=== PATIENT | female | born 1985 | race Caucasian/White ===

== ENCOUNTER 2018-04-15 07:28 | Emergency (ER) | payer OTHER ==
[2018-04-15] MEDS ORDERED: Lidocaine 1%* 5 ML VIAL ONE (07:50)
[2018-04-15 07:53] VITALS: BP 137/92
[2018-04-15] MEDS ORDERED: Lidocaine 1%* 5 ML VIAL INJ ONE (08:03)
--- NOTE | 2018-04-15 11:57 | UC ---
Liliana Turner Rebecca, scribed for Jun Tilley MD on 04/15/18 at 0752 . Laceration HPI - HPI Summary HPI Summary: Pt is a 33 y/o F who presents to [facility] c/o right index finger laceration. Pt reports that last night at about 1700 she was using a knife to get the top off a bottle when the knife slipped and caused the laceration. She immediately washed the laceration and applied pressure for about 30 minutes. Reports it appeared as though the bleeding had decreased in severity, so she bandaged it and went to sleep. This morning the bleeding had begun again. Left hand dominant and takes 81 mg ASA daily as part of her IVF cycle. No PMHx or FHx bleeding disorders. Tetanus is UTD. - History Of Current Complaint Stated Complaint: FINGER LAC Time Seen by Provider: 04/15/18 07:34 Hx Obtained From: Patient Hx Last Menstrual Period: 12/29/2013 Laceration Location: Finger - Right index Mechanism Of Injury: Sharp Trauma - Knife Onset/Duration: Lasting Hours - Last night at 1700, Still Present Severity: Moderate Pain Intensity: 4 Pain Scale Used: 0-10 Numeric Aggravating Factors: Nothing Related History: Dominant Hand Left - Allergies/Home Medications Allergies/Adverse Reactions: Allergies Allergy/AdvReac Type Severity Reaction Status Date / Time No Known Allergies Allergy Verified 04/15/18 07:46 Home Medications: Home Medications Aspirin EC TAB* [Ecotrin EC Low Dose 81 MG*] 81 mg PO DAILY 04/15/18 [History Confirmed 04/15/18] Leuprolide Acetate [Lupron Depot (Lupaneta)] 5 mg IM DAILY 04/15/18 [History Confirmed 04/15/18] Levothyroxine TAB* [Synthroid TAB*] 25 mcg PO 0800 04/15/18 [History Confirmed 04/15/18] PMH/Surg Hx/FS Hx/Imm Hx - Additional Past Medical History Additional PMH: NEGATIVE PMHx: Bleeding disorder, Asthma, HTN, COPD Endocrine History: Thyroid Disease - Hypothyroid - Surgical History Surgical History: Yes Surgery Procedure, Year, and Place: [place] teeth extractioin 2001 - Family History Known Family History: Negative: Blood Disorder - Social History Alcohol Use: None Substance Use Type: None Smoking Status (MU): Never Smoked Tobacco Have You Smoked in the Last Year: No - Immunization History Most Recent Influenza Vaccination: Most Recent Tetanus Shot: 11/23/14 Most Recent Pneumonia Vaccination: n/a Review of Systems Constitutional: Negative Skin: Other - Right index finger laceration Eyes: Negative ENT: Negative Respiratory: Negative Cardiovascular: Negative Gastrointestinal: Negative Genitourinary: Negative Motor: Negative Neurovascular: Negative Musculoskeletal: Negative Neurological: Negative Psychological: Negative All Other Systems Reviewed And Are Negative: Yes Physical Exam - Summary Physical Exam Summary: Appearance: Well appearing, no pain distress Skin: warm, dry, reflects adequate perfusion, 1.5 cm laceration proximal to the PIP joint on her right index finger with normal tendon function and normal sensation Head/face: normal Eyes: EOMI, TAIWO ENT: normal Neck: supple, non-tender Respiratory: CTA, breath sounds present Cardiovascular: RRR, pulses symmetrical Musculoskeletal: normal, strength/ROM intact Neuro: normal, sensory motor intact, A&Ox3 Triage Information Reviewed: Yes Vital Signs: Initial Vitals Temp Pulse Resp BP Pulse Ox 99.3 F 114 16 137/92 98 04/15/18 07:36 04/15/18 07:36 04/15/18 07:36 04/15/18 07:36 04/15/18 07:36 Vital Signs Reviewed: Yes Laceration Repair - Laceration Repair 1 Laceration Size After Repair: Length (cm) - 1.5 Contamination/FB Removal: Cleaned in the sink Anesthesia Used: 1.0% Lido - 0.5 cc Closure Material: Sutures Closure Method: Single Layer Suture Of: Skin Suture Type: Prolene - 4-0; 1x simple interrupted, 1x horizontal mattress Laceration Course/Dx - Course/Dx Course Of Treatment: Patient with a finger laceration that continues to bleed. She irrigated it last night when it occurred and we cleaned it again today. 2 sutures closed the wound. Topical bacitracin. - Differential Dx - Laceration/Wound Provider Diagnoses: Finger laceration Discharge - Sign-Out/Discharge Documenting (check all that apply): Discharge/Admit/Transfer - Discharge - Discharge Plan Condition: Improved Disposition: HOME Patient Education Materials: Finger Laceration (ED) Referrals: Lucila Peacock MD [Primary Care Provider] - Additional Instructions: Sutures out in 7-10 days. Keep dressed with bacitracin and a Band-Aid. Return with concerns for infection, worse, new symptoms or other concerns. - Billing Disposition and Condition Condition: IMPROVED Disposition: Home The documentation as recorded by the Liliana faria Rebecca accurately reflects the service I personally performed and the decisions made by me, Jun Tilley MD.
== END 2018-04-15 08:09 | disposition home or self-care (01) ==
LOC: UCEAST 07:28
DX: S61.210A Laceration without foreign body of right index finger without damage to nail, initial encounter (principal); W26.0XXA Contact with knife, initial encounter; Y93.9 Activity, unspecified; Y92.9 Unspecified place or not applicable; Z79.82 Long term (current) use of aspirin; E03.9 Hypothyroidism, unspecified
CPT/HCPCS: 12001; 99211; G0463

== ENCOUNTER 2018-04-23 08:14 | Emergency (ER) | payer OTHER ==
[2018-04-23 08:25] VITALS: BP 124/72
--- NOTE | 2018-04-23 08:30 | UC ---
HPI Wound/Suture Re-check - HPI Summary HPI Summary: This pt is a 33 y/o female presenting to [facility] for suture removal today. Pt reports she sustained a right index finger laceration on 04/15/18. She came to the Urgent Care on 04/15 and had a laceration repair. Since then pt denies any issues or complications. Denies swelling, redness, fever, chills, drainage. - History Of Current Complaint Chief Complaint: UCWounds Stated Complaint: SUTURE REMOVAL Time Seen by Provider: 04/23/18 08:23 Hx Obtained From: Patient Hx Last Menstrual Period: 04/13/18 Onset/Duration: Lasting Days, Still Present Surgical Site: Right index finger Pain Intensity: 0 Pain Scale Used: 0-10 Numeric Procedure Type: Sutures placed on 04/15/18 - Allergies/Home Medications Allergies/Adverse Reactions: Allergies Allergy/AdvReac Type Severity Reaction Status Date / Time No Known Allergies Allergy Verified 04/23/18 08:25 Home Medications: Home Medications Estradiol [Estrace] 1 mg PO Q2HR 04/23/18 [History Confirmed 04/23/18] PMH/Surg Hx/FS Hx/Imm Hx Other Endocrine History: DENIES: diabetes Other Cardiovascular History: DENIES: HTN - Surgical History Surgical History: Yes Surgery Procedure, Year, and Place: [place] teeth extractioin 2001 - Family History Known Family History: Negative: Blood Disorder - Social History Alcohol Use: None Substance Use Type: None Smoking Status (MU): Never Smoked Tobacco Have You Smoked in the Last Year: No - Immunization History Most Recent Influenza Vaccination: Most Recent Tetanus Shot: 11/23/14 Most Recent Pneumonia Vaccination: n/a Review of Systems Constitutional: Negative Skin: Other - sutures on right index finger Eyes: Negative ENT: Negative Respiratory: Negative Cardiovascular: Negative Gastrointestinal: Negative Genitourinary: Negative Motor: Negative Neurovascular: Negative Musculoskeletal: Negative Neurological: Negative Psychological: Negative All Other Systems Reviewed And Are Negative: Yes Physical Exam - Summary Physical Exam Summary: VITAL SIGNS: Reviewed. GENERAL: Patient is a well-developed and nourished female. Patient is not in any acute respiratory distress. HEAD AND FACE: Normocephalic EYES: PERRLA, EOMI x 2. EARS: Hearing grossly intact. MOUTH: Oropharynx within normal limits. NECK: Supple, trachea is midline, no adenopathy, no JVD, no carotid bruit. CHEST: Symmetric, no tenderness at palpation LUNGS: Clear to auscultation bilaterally. No wheezing or crackles. CVS: Regular rate and rhythm, S1 and S2 present, no murmurs or gallops appreciated. ABDOMEN: Soft, non-tender. Bowel sounds are normal. No abdominal abnormal pulsations. EXTREMITIES: Full ROM in all major joints, no edema, no cyanosis or clubbing. NEURO: Alert and oriented x 3. No acute neurological deficits. Speech is normal and follows commands. SKIN: Dry and warm. RUE: I removed 2 sutures from right index finger. The wound is well healing. No complications. Triage Information Reviewed: Yes Vital Signs: Initial Vital Signs Temp 98.2 F 04/23/18 08:20 Pulse 74 04/23/18 08:20 Resp 18 04/23/18 08:20 BP 124/72 04/23/18 08:20 Pulse Ox 100 04/23/18 08:20 Vital Signs Reviewed: Yes Course/Dx - Course Course Of Treatment: This pt is a 33 y/o female presenting to [facility] for suture removal today. Pt reports she sustained a right index finger laceration on . She came to the Urgent Care on 04/15 and had a laceration repair. Since then pt denies any issues or complications. Denies swelling, redness, fever, chills, drainage. I removed two sutures from the right index finger. The wound is healing well. There were no complications. Pt was instructed to return to the urgent care or go to ER immediately if any of the symptoms return or worsens. Plan of care was discussed with the patient and pt understands and agrees. All questions were answered to patient satisfaction. There were no further complaints or concerns. Pt will be discharged to home with follow up from PCP. Pt is hemodynamically stable, alert and oriented x3. - Differential Dx - Laceration/Wound Provider Diagnoses: Suture removal Discharge - Sign-Out/Discharge Documenting (check all that apply): Patient Departure - Discharge - Discharge Plan Condition: Stable Disposition: HOME Patient Education Materials: Stitches Removal (ED) Referrals: Lucila Peacock MD [Primary Care Provider] - - Billing Disposition and Condition Condition: STABLE Disposition: Home
== END 2018-04-23 08:35 | disposition home or self-care (01) ==
LOC: UCEAST 08:14
DX: S61.210D Laceration without foreign body of right index finger without damage to nail, subsequent encounter (principal); X58.XXXD Exposure to other specified factors, subsequent encounter

== ENCOUNTER 2018-06-02 15:11 | Emergency (ER) | payer OTHER ==
[2018-06-02 15:30] VITALS: BP 126/80
--- NOTE | 2018-06-02 15:53 | UC ---
Eye Complaint HPI - HPI Summary HPI Summary: This patient is a 33 year old presenting to [facility] with a chief complaint of a L eye discharge since 2 days ago. The patient rates the pain 0/10 in severity. Patient reports redness, itchiness, and "cold-like symptoms." Patient reports being in the middle of an IBS cycle, so she must be medicated as if she were . She is not allergic to any medications. Patient does not smoke, consume alcohol, or use other substances. She has a FHx of HTN. - History of Current Complaint Chief Complaint: UCEye Stated Complaint: EYE COMPLAINT Time Seen by Provider: 06/02/18 15:42 Hx Obtained From: Patient Hx Last Menstrual Period: 05/04/18 Onset/Duration: Sudden Onset, Lasting Days - 2 days ago, Still Present Timing: Constant Severity Initially: Mild Severity Currently: Mild Pain Intensity: 0 Pain Scale Used: 0-10 Numeric Aggravating Factor(s): Nothing Alleviating Factor(s): Nothing - Allergies/Home Medications Allergies/Adverse Reactions: Allergies Allergy/AdvReac Type Severity Reaction Status Date / Time No Known Allergies Allergy Verified 06/02/18 15:31 Home Medications: Home Medications Progesterone SUPP (NF) [Endometrin SUPP (NF)] 1 dose VAGINAL DAILY 06/02/18 [ History Confirmed 06/02/18] PMH/Surg Hx/FS Hx/Imm Hx Endocrine History: Diabetes - Denies diabetes Cardiovascular History: Cardiac Disease - Denies CAD - Surgical History Surgical History: Yes Surgery Procedure, Year, and Place: [place] teeth extractioin 2001 - Family History Known Family History: Positive: Hypertension Negative: Blood Disorder - Social History Occupation: Employed Full-time Alcohol Use: Occasionally Substance Use Type: None Smoking Status (MU): Never Smoked Tobacco Have You Smoked in the Last Year: No - Immunization History Most Recent Influenza Vaccination: Most Recent Tetanus Shot: 11/23/14 Most Recent Pneumonia Vaccination: n/a Review of Systems Constitutional: Fever - Denies fever, Other - "Cold-like symptoms" Eyes: Other - Discharge from L eye All Other Systems Reviewed And Are Negative: Yes Physical Exam - Summary Physical Exam Summary: VITAL SIGNS: Reviewed. GENERAL: Patient is a well-developed and nourished FEMALE who is lying comfortable in the stretcher. Patient is not in any acute respiratory distress. HEAD AND FACE: Normocephalic EYES: PERRLA, EOMI x 2. Yellowish discharge from L eye EARS: Hearing grossly intact. Conjunctival injection in L ear. MOUTH: Oropharynx within normal limits. NECK: Supple, trachea is midline, no adenopathy, no JVD, no carotid bruit. CHEST: Symmetric, no tenderness at palpation LUNGS: Clear to auscultation bilaterally. No wheezing or crackles. CVS: Regular rate and rhythm, S1 and S2 present, no murmurs or gallops appreciated. ABDOMEN: Soft, non-tender. Bowel sounds are normal. No abdominal abnormal pulsations. EXTREMITIES: Full ROM in all major joints, no edema, no cyanosis or clubbing. NEURO: Alert and oriented x 3. No acute neurological deficits. Speech is normal and follows commands. SKIN: Dry and warm Triage Information Reviewed: Yes Vital Signs: Initial Vital Signs Temp 99.2 F 06/02/18 15:28 Pulse 89 06/02/18 15:28 Resp 12 06/02/18 15:28 BP 126/80 06/02/18 15:28 Pulse Ox 100 06/02/18 15:28 Vital Signs Reviewed: Yes Eye Complaint Course/Dx - Course Course Of Treatment: This patient is a 33-year-old female with a chief complaint of left eye redness and discharge. Patient diagnosed with acute conjunctivitis. Patient was getting azithromycin ophthalmic since the patient declined to be . Patient is hemolyticus stable alert and oriented 3. - Differential Dx/Diagnosis Provider Diagnoses: Acute conjunctivitis Discharge - Sign-Out/Discharge Documenting (check all that apply): Patient Departure - D/C All imaging exams completed and their final reports reviewed: No Studies - Discharge Plan Condition: Stable Disposition: HOME Patient Education Materials: Conjunctivitis (ED) Referrals: [facility]IAN REFERRAL [Outside] No Primary Care Phys,NOPCP [Primary Care Provider] - Additional Instructions: Take medications as instructed and adhere to plan Take Acetaminophen or ibuprofen for pain or fever Increase your fluid intake Return to the or go to the emergency department if symptoms worsen Follow-up with primary care physician in next 2-3 days - Billing Disposition and Condition Condition: STABLE Disposition: Home - Attestation Statements Document Initiated by Scribe: Yes Documenting Scribe: Bharath Jacome Provider For Whom Scribe is Documenting (Include Credential): John Swanson MD Scribe Attestation: Bharath Turner scribed for John Swanson MD on 06/02/18 at 1614. Scribe Documentation Reviewed: Yes Provider Attestation: The documentation as recorded by the scribeBharath accurately reflects the service I personally performed and the decisions made by me, John Swanson MD
== END 2018-06-02 16:00 | disposition home or self-care (01) ==
LOC: UCEAST 15:11
DX: H10.32 Unspecified acute conjunctivitis, left eye (principal)
CPT/HCPCS: 99212; G0463

== ENCOUNTER 2018-08-19 18:25 | Emergency (ER) | payer OTHER ==
[2018-08-19 19:05] VITALS: BP 135/71
--- NOTE | 2018-08-19 19:25 | UC ---
Laceration HPI - HPI Summary HPI Summary: Today cut L index finger during dinner prep. Pt reports lots of bleeding. She is L handed. Of note pt is - History Of Current Complaint Chief Complaint: UCLaceration Stated Complaint: FINGER LACERATION Time Seen by Provider: 08/19/18 19:11 Hx Obtained From: Patient Hx Last Menstrual Period: 05/04/18 Laceration Location: Finger - L index Mechanism Of Injury: Sharp Trauma Onset/Duration: Sudden Onset Severity: Mild Pain Intensity: 2 Pain Scale Used: 0-10 Numeric Aggravating Factors: Nothing Related History: Dominant Hand Left - Allergies/Home Medications Allergies/Adverse Reactions: Allergies Allergy/AdvReac Type Severity Reaction Status Date / Time No Known Allergies Allergy Verified 08/19/18 19:05 Home Medications: Home Medications Docosahexanoic Acid [Dha] 08/19/18 [History Confirmed 08/19/18] Vitamin TAB* 1 tab PO DAILY 08/19/18 [History Confirmed 08/19/18] PMH/Surg Hx/FS Hx/Imm Hx - Additional Past Medical History Additional PMH: CURRENTLY Previously Healthy: Yes - Surgical History Surgical History: Yes Surgery Procedure, Year, and Place: [place] teeth extractioin 2001 - Family History Known Family History: Positive: Hypertension Negative: Blood Disorder - Social History Alcohol Use: None Substance Use Type: None Smoking Status (MU): Never Smoked Tobacco Have You Smoked in the Last Year: No - Immunization History Most Recent Influenza Vaccination: Most Recent Tetanus Shot: 11/23/14 Most Recent Pneumonia Vaccination: n/a Review of Systems All Other Systems Reviewed And Are Negative: Yes Constitutional: Positive: Negative Skin: Positive: Other - SMALL CUT W/ KNIFE Musculoskeletal: Positive: Negative - HAND ISSUES OTHER THAN CUT. Is Patient Immunocompromised?: No Physical Exam Triage Information Reviewed: Yes Appearance: Well-Appearing Vital Signs: Initial Vital Signs Temp 98.9 F 08/19/18 19:02 Pulse 89 08/19/18 19:02 Resp 16 08/19/18 19:02 BP 135/71 08/19/18 19:02 Pulse Ox 100 08/19/18 19:02 Vital Signs Reviewed: Yes Musculoskeletal: Positive: Strength Intact - l HAND, ROM Intact - ALL FINGERS OF L HAND, No Edema - OF L HAND Neurological: Positive: Alert Skin Exam: Other - SMALL AVULSION OF SKIN, MINIMAL BLEEDING. Laceration Course/Dx - Course/Dx Course Of Treatment: SMALL AVULSION OF SKIN/LACERATION FROM KNIFE. MINIMAL BLEEDING. UNABLE TO SUTURE OR USE DERMABOND; TOO SMALL. WILL CLEAN AND DRESS. L INDEX. OF NOTE . - Differential Dx - Laceration/Wound Differental Diagnoses: Abrasion, Laceration Provider Diagnoses: LACERATION L INDEX Discharge - Sign-Out/Discharge Documenting (check all that apply): Patient Departure All imaging exams completed and their final reports reviewed: No Studies - Discharge Plan Condition: Good Disposition: HOME Patient Education Materials: Laceration (ED) Referrals: No Primary Care Phys,NOPCP [Primary Care Provider] - [facility] [Outside] Additional Instructions: follow up with pcp if not improving - Billing Disposition and Condition Condition: GOOD Disposition: Home
== END 2018-08-19 19:53 | disposition home or self-care (01) ==
LOC: UCEAST 18:25
DX: O9A.219 Injury, poisoning and certain other consequences of external causes complicating pregnancy, unspecified trimester (principal); S61.211A Laceration without foreign body of left index finger without damage to nail, initial encounter; W26.0XXA Contact with knife, initial encounter; Y92.9 Unspecified place or not applicable
CPT/HCPCS: 99212; G0463

== ENCOUNTER 2019-02-10 15:10 | Inpatient (IN) | payer OTHER ==
--- NOTE | 2019-02-10 16:03 | PN ---
Progress Note - Progress Note Date of Service: 02/10/19 Note: Reports contractions since early this morning, feels like she has been in more of a labor pattern since about noon or 1 pm. Breathing/vocalizing through UCs. O: B/P: 118/72, P: 82, R: 20, T: FHR: baseline 120, minimal to moderate variability, +accelerations, one isolated variable decel UCs: q 5 minutes by palpation, mild to moderate. UCs not tracing well via toco VE: Vertex, 3/70/-2, posterior. Membranes intact. A: IUP at 39 5/7 weeks Category II FHR, doubt metabolic acidemia Early active labor vs false labor GBS negative P: Will reassess in 1-2 hrs or sooner prn Discussed position changes, comfort measures
--- NOTE | 2019-02-10 16:55 | HP ---
General Information - Reason for Visit Contractions - General Information Maternal Age: 33 Grav: 2 Para: 1 SAB: 0 IEA: 0 Estimated Due Date: 02/12/19 Determined By: Early Ultrasound Gestational Age in Weeks/Days: 39/5 Maternal Blood Type and Rh: O Negative - Results this Serology/RPR Result: Non-Reactive Rubella Result: Immune HBsAg Result: Negative HIV Result: Negative GBS Culture Result: Negative Past Medical History Delivery History: Hx Complicated Vaginal Delivery Delivery History Comment: Vacuum for tachycardia, maternal exhaustion 3rd degree laceration Pertinent Past Medical History: See Records Past Medical History Comment: hypothyroidism, on replacement Pertinent Past Surgical History: See Records Past Surgical History Comment: wisdom tooth extraction Pertinent Family History: Non-Contributory - Antepartal Records Antepartal Records: Reviewed, Complicated by: - Rh negative status, age 33 at delivery Review of Systems Constitutional: Uncomfortable CV Complaint: No Respiratory: Shortness of Breath: No Gastrointestinal: No Nausea/Vomiting, Normal Bowel Movement Genitourinary: No Dysuria, No Bleeding, No Leaking Fluid Musculoskeletal: No Epigastric Pain, Contractions Neurological: No Headache Movement: Normal Exam Allergies/Adverse Reactions: Allergies No Known Allergies Allergy (Verified 08/19/18 19:05) B/P: 118/72, P: 88, R: 20, T: 98.2 - Measurements Height: 5 ft 2 in Weight: 200 lb Weight in lbs: [phone] Body Mass Index (BMI): 36.6 Pre- Weight: 176 lb Weight Gained This : 24 lbs and 0 ozs - Exam Breast: Breast Exam Deferred CVA: No CVA Tenderness Heart: Normal Rhythm/Heart Sounds HEENT: No Significant Findings Lungs: Clear Bilaterally Reflexes: DTR 2+ Thyroid: No Thyromegaly - Abdominal Exam Abdomen Exam: Non-Tender, Fundal Height Consistent with Dates - Ultrasound/Biophysical Profile Ultrasound Status: Not Done Targeted Exam Findings See L&D Outpatient Visit Provider Note for Findings: N/A Estimated Weight: 7.5 lb by karin Cervical Exam: 3cm Effacement: 80% Station: -2 Membrane Status: Intact Bleeding/Discharge: Bloody Show EFM Findings - External Monitor Findings Baseline Heart Rate: 120 External Monitor Findings: Accelerations Present, No Pattern of Variable or Late Decelerations, Variability Moderate, Baseline Stable Contractions: Regular, Mild, Moderate, 45-90 Seconds Contraction Frequency: q4-6 min Assessment/Plan - Assessment A: IUP at 39 5/7 weeks Category II FHR, doubt metabolic acidemia Early active labor GBS Negative P: Admit to inpatient Reassess in 2-4 hrs or sooner as indicated Discussed pain management preferences, pt is open-minded at this point "not for or against anything" Anticipate SVB - Obstetrical Risk Factors Obstetrical Risk Factors: Assisted Reproduction - Plan Plan: Admit - Anticipate Vaginal Delivery - Date/Time of Admission Date of Admission: 02/10/19 Time of Admission: 16:00
--- NOTE | 2019-02-10 20:12 | PN ---
Progress Note - Progress Note Date of Service: 02/10/19 Note: contractions have spaced out but longer, stronger. Coping well, using position changes, massage Cervix: 5 cm/100%, vtx -1, Membranes intact. Will continue expectant management
--- NOTE | 2019-02-10 22:14 | PN ---
Progress Note - Progress Note Date of Service: 02/10/19 Note: still in good control, considering AROM Cervix 6-7cm/100%, vtx -1
[2019-02-10] MEDS ORDERED: Lactated Ringers 1000 ML Bag* 1,000 ML IV SCH (23:45)
[2019-02-10] MEDS ORDERED: Buffered Lidocaine 1% SYRIN* 1 ML/SYRINGE INTRADERM ONE (23:50)
[2019-02-10] MEDS ORDERED: Lactated Ringers 1000 ML Bag* 1,000 ML IV ONE (23:50)
[2019-02-11] MEDS ORDERED: OBEPIDURAL* 250 ML EPIDURAL ONE (00:19)
[2019-02-11 00:20] LABS: ABS Lymphocytes 0.8 10^3/ul (1.0-4.8); ABS Monocytes 0.3 10^3/ul (0-0.8); ABS Neutrophils 13.9 10^3/ul (1.5-7.7); Hematocrit 39 % (35-47); Hemoglobin 13.1 g/dL (12.0-16.0); Lymphocyte % 5.3 %; Mean Corpuscular HGB Conc 34 g/dL (31-36); Mean Corpuscular Hemoglobin 32 pg (27-31); Mean Corpuscular Volume 93 fL (80-97); Mean Platelet Volume 10.6 fL (7.4-10.4); Platelet Count 193 10^3/uL (150-450); Red Blood Count 4.14 10^6 /uL (3.70-4.87); Red Cell Distribution Width 14 % (10.5-15)
[2019-02-11] MEDS ORDERED: Lidocaine 1%* 5 ML VIAL ONE (00:52)
[2019-02-11] MEDS ORDERED: Lactated Ringers 1000 ML Bag* 1,000 ML IV ONE (01:16)
[2019-02-11] MEDS ORDERED: EPHEDrine (Pressors)* 50 MG/ML VIAL IV PUSH PRN ×2 (01:16)
[2019-02-11] MEDS ORDERED: Sodium Citrate/Citric Acid* 15 ML UDC PO PRN (01:16)
[2019-02-11] MEDS ORDERED: Famotidine TAB* 20 MG PO PRN (01:16)
[2019-02-11] MEDS ORDERED: Phenylephrine 40 MCG/ML SYRINGE IV PUSH PRN ×2 (01:16)
--- NOTE | 2019-02-11 01:47 | PN ---
Progress Note - Progress Note Date of Service: 02/11/19 Note: comfortable after epidural, now feeling pressure Cervix: 8cm, vtx -1 AROM: clear, bloody fluid
[2019-02-11] MEDS ORDERED: Lactated Ringers 1000 ML Bag* 1,000 ML IV SCH ×2 (02:00→07:00)
[2019-02-11] MEDS ORDERED: OBEPIDURAL* 250 ML EPIDURAL SCH (02:00)
[2019-02-11] MEDS ORDERED: Oxytocin in LR* 20 UNITS/1,000 ML BAG IVPB ONE (05:32)
[2019-02-11] MEDS ORDERED: Witch Hazel PAD* JAR TOPICAL PRN (06:57)
[2019-02-11] MEDS ORDERED: RHO D Immune Globulin (HUMAN)* 300 MCG = 1,500 I.U. INJ IM ONE (06:57)
[2019-02-11] MEDS ORDERED: Acetaminophen TAB* 325 MG PO PRN (06:57)
[2019-02-11] MEDS ORDERED: Dibucaine 1% 28.35 GM TUBE PR PRN (06:57)
--- NOTE | 2019-02-11 07:08 | PN ---
Progress Note - Progress Note Date of Service: 02/11/19 Note: Procedure note Called to see pt shortly after otherwise uncomplicated vaginal delivery. Ms. Rodríguez CNM reported placenta seemed to be descending but then cord spontaneously avulsed. Bleeding was mild at that time. With hand up to the fundus, placenta palpated high in the right uterus. Uterus actually was clamped down underneath the placenta making palpation very difficulty. Slowly able to pry placenta using just a couple fingers. One moderate piece of placenta removed initially. With next pass, remainder removed in one large mass. With careful palpation, no additional tissue was remaining. Bleeding was light at that time, and pitocin started. Perineum injected with 1% lidocaine, and a 2nd degree perineal lac was closed with 3-0 Vicryl Rapide.
[2019-02-11] MEDS ORDERED: ceFAZolin 2 GM PREMIX in ORs 2 GM/50 ML BAG IVPB ONE (07:14)
[2019-02-11] MEDS: Docusate CAP* 100 MG PO SCH ×3 (07:39→20:44)
[2019-02-11] MEDS: Ibuprofen TAB* 600 MG PO PRN ×3 (07:39→20:44)
--- NOTE | 2019-02-11 08:13 | PROCNOTE ---
[facility]: Delivery Note - Delivery A Date of : 02/11/19 Time of : 06:13 [place] Sex: Male Score 1 Minute: 8 Score 5 Minutes: 9 Gestational Age in Weeks and Days at Delivery: 39 Weeks and 6 Days Delivery Method: Spontaneous Vaginal Labor: Spontaneous Amniotic Fluid: Bloody Estimated Blood Loss: 400 Anesthesia/Analgesia: CEI for Labor Anesthesia Comment: Dr. Grayson Delivered By: Liliam Rodríguez - Nursery Level of Nursery: Regular/Bedside - Perineum Perineal Injury: 2nd Degree Perineal Repair: repair by Dr. Chairez - Events Delivery Events of Note: Pitocin During Labor, Post- Bleeding - Meds Given , Manual Removal of Placenta Delivery Events of Note Comment: cord avulsion, manual removal of placenta - Risk for Falls Delivered OB Patient- Risk for Falls: Heavy Bleeding Fall Risk: Patient is at High Risk for Falls - Additional Delivery Notes Additional Delivery Notes: SVB [facility], OA, over 2nd deg perineal lac. Infant pink with stimulation. Cord avulsion, Dr. Chairez called for manual removal, see his note.
[2019-02-11] MEDS ORDERED: Simethicone TAB* 80 MG TAB.CHEW PO SCH (08:30)
[2019-02-11] MEDS ORDERED: Misoprostol TAB* 200 MCG ONE (09:31)
[2019-02-11] MEDS ORDERED: Lidocaine 1% INJ* 10 MG/ML 30 ML SDV ONE (09:32)
[2019-02-12] MEDS: Ibuprofen TAB* 600 MG PO PRN ×2 (04:30→10:15)
[2019-02-12 08:18] LABS: ABS Eosinophils 0.1 10^3/ul (0-0.6); ABS Lymphocytes 1.4 10^3/ul (1.0-4.8); ABS Monocytes 0.4 10^3/ul (0-0.8); ABS Neutrophils 6.4 10^3/ul (1.5-7.7); Hematocrit 30 % (35-47); Hemoglobin 9.9 g/dL (12.0-16.0); Lymphocyte % 16.7 %; Mean Corpuscular HGB Conc 34 g/dL (31-36); Mean Corpuscular Hemoglobin 32 pg (27-31); Mean Corpuscular Volume 96 fL (80-97); Mean Platelet Volume 10.2 fL (7.4-10.4); Platelet Count 131 10^3/uL (150-450); Red Blood Count 3.08 10^6 /uL (3.70-4.87); Red Cell Distribution Width 14 % (10.5-15); White Blood Count 8.3 10^3/uL (3.5-10.8)
[2019-02-12 08:48] VITALS: BP 110/69
[2019-02-12] MEDS ORDERED: Ferrous Gluconate TAB* 324 MG TAB PO SCH (09:00)
[2019-02-12] MEDS ORDERED: RHO D Immune Globulin (HUMAN)* 300 MCG = 1,500 I.U. INJ IM ONE (09:36)
[2019-02-12] MEDS: Docusate CAP* 100 MG PO SCH (10:16)
== END 2019-02-12 11:10 | disposition home or self-care (01) | DRG 807 ==
LOC: MCHOBOUT 15:10 → MCHOB 16:54
PROVIDERS: ADMIT Midwife; ATTEND Midwife
PROC: 10E0XZZ Delivery of Products of Conception, External Approach (ICD-10-PCS; principal; 2019-02-11)
PROC: 0KQM0ZZ Repair Perineum Muscle, Open Approach (ICD-10-PCS; 2019-02-11)
PROC: 10D17Z9 Manual Extraction of Products of Conception, Retained, Via Natural or Artificial Opening (ICD-10-PCS; 2019-02-11)
PROC: 10907ZC Drainage of Amniotic Fluid, Therapeutic from Products of Conception, Via Natural or Artificial Opening (ICD-10-PCS; 2019-02-11)
DX: O99.284 Endocrine, nutritional and metabolic diseases complicating childbirth (principal); Z37.0 Single live birth; E03.9 Hypothyroidism, unspecified; O71.5 Other obstetric injury to pelvic organs; O70.1 Second degree perineal laceration during delivery; O69.5XX0 Labor and delivery complicated by vascular lesion of cord, not applicable or unspecified; O73.1 Retained portions of placenta and membranes, without hemorrhage; Z3A.39 39 weeks gestation of pregnancy
CPT/HCPCS: 36415; 85025; 85461; 86850; 86900; 86901; A9270-GY; J0690; J2790

== ENCOUNTER 2019-11-16 15:00 | Emergency (ER) | payer OTHER ==
[2019-11-16 16:04] VITALS: BP 127/77
--- NOTE | 2019-11-16 16:31 | UC ---
Throat Pain/Nasal Juan A HPI - HPI Summary HPI Summary: 34-year-old woman comes in with chief complaint of sinus pressure rhinorrhea and right ear pain and right facial pain. Patient recently treated for conjunctivitis and sinusitis with Cipro drops and amoxicillin. She was seen here on 04 November 2019. She finished the antibiotics about 5 days ago and 3 days ago symptoms of sinusitis returned along with the right ear pain. She's unsure of whether or not the original infection is completely gone are not. Patient is breast-feeding. One of her children tested positive for the flu recently. - History of Current Complaint Chief Complaint: UCRespiratory Stated Complaint: SINUS ISSUES, FLU TEST Time Seen by Provider: 11/16/19 16:16 Hx Last Menstrual Period: [id number] Pain Intensity: 2 - Allergies/Home Medications Allergies/Adverse Reactions: Allergies Allergy/AdvReac Type Severity Reaction Status Date / Time No Known Allergies Allergy Verified 11/16/19 16:04 Home Medications: Home Medications Multivit with Iron,Minerals [Super Multiple] 1 each PO DAILY 11/16/19 [History Confirmed 11/16/19] PMH/Surg Hx/FS Hx/Imm Hx Previously Healthy: Yes - Surgical History Surgical History: Yes Surgery Procedure, Year, and Place: Trail teeth extractioin 2001 - Family History Known Family History: Positive: Hypertension Negative: Blood Disorder - Social History Alcohol Use: Occasionally Substance Use Type: None Smoking Status (MU): Never Smoked Tobacco Have You Smoked in the Last Year: No - Immunization History Most Recent Influenza Vaccination: 2018 Most Recent Tetanus Shot: 11/23/14 Most Recent Pneumonia Vaccination: n/a Review of Systems All Other Systems Reviewed And Are Negative: Yes Constitutional: Positive: Other - SEE HPI Skin: Positive: Negative Eyes: Positive: Negative ENT: Positive: Sore Throat, Ear Ache, Nasal Discharge, Sinus Congestion, Sinus Pain/Tenderness Respiratory: Positive: Negative Cardiovascular: Positive: Negative Gastrointestinal: Positive: Negative Motor: Positive: Negative Neurovascular: Positive: Negative Musculoskeletal: Positive: Negative Neurological: Positive: Negative Psychological: Positive: Negative Is Patient Immunocompromised?: No Physical Exam Triage Information Reviewed: Yes Appearance: No Pain Distress, Well-Nourished, Ill-Appearing - MILD Vital Signs: Initial Vital Signs Temp 98.2 F 11/16/19 15:58 Pulse 96 11/16/19 15:58 Resp 16 11/16/19 15:58 BP 127/77 11/16/19 15:58 Pulse Ox 98 11/16/19 15:58 Vital Signs Reviewed: Yes Eye Exam: Normal Eyes: Positive: Conjunctiva Clear ENT: Positive: Pharyngeal erythema, Nasal congestion, Nasal drainage, TMs normal , Other - Right ear canal is swollen and erythematous and the tragus on the right is tender to palpation. Neck: Positive: Supple, Other: - Mild tenderness to palpation below the right ear and just underneath the jaw on the right. Respiratory: Positive: Lungs clear, Normal breath sounds, No respiratory distress Cardiovascular: Positive: RRR Musculoskeletal: Positive: Strength Intact, ROM Intact Neurological: Positive: Alert, Muscle Tone Normal Psychological: Positive: Age Appropriate Behavior Skin Exam: Normal Throat Pain/Nasal Course/Dx - Course Course Of Treatment: We will treat with ofloxacin for the right Otitis externa. Patient started using netti pot and saline nasal spray. Considering this to be an sinus infection that did not completely go away with the amoxicillin will treat with Augmentin. Patient will follow-up with her primary care doctor if not improving or get reevaluated sooner if worse or any questions or concerns. - Differential Dx/Diagnosis Provider Diagnosis: Sinusitis, Right otitis externa Discharge ED - Sign-Out/Discharge Documenting (check all that apply): Patient Departure All imaging exams completed and their final reports reviewed: No Studies - Discharge Plan Condition: Stable Disposition: HOME Patient Education Materials: Sinusitis (ED), Otitis Externa (ED) Referrals: [facility] [place] [facility] [Outside] Additional Instructions: FOLLOW UP WITH YOUR DOCTOR IF NOT COMPLETELY IMPROVED. GET REEVALUATED SOONER IF NOT IMPROVED OR WORSE OR ANY QUESTIONS OR CONCERNS. - Billing Disposition and Condition Condition: STABLE Disposition: Home
[2019-11-16 16:36] LABS: Influenza A Molecular Negative (Negative); Influenza B Molecular Negative (Negative)
== END 2019-11-16 16:55 | disposition home or self-care (01) ==
LOC: UCEAST 15:00
DX: J32.9 Chronic sinusitis, unspecified (principal); H60.91 Unspecified otitis externa, right ear
CPT/HCPCS: 99212; G0463